=== PATIENT | male | born 1980 | race Caucasian/White ===

== ENCOUNTER 2024-10-06 12:16 | Emergency (ER) | payer OTHER ==
[~2024-10-06] VITALS: Ht 177.8 cm; Wt 160.0 kg
[2024-10-06 12:38] LABS: BASOPHILS 0.5 % (0-2); HEMATOCRIT 39.9 % (35.0-50.0); HEMOGLOBIN 13.5 g/dL (12.0-18.0); LYMPHOCYTES 22.1 % (24-44); MCH 29.3 (27-36); MCHC 33.9 g/dl (30-36); MCV 86.3 fl (81-99); MONOCYTES 7.6 % (0-12); NEUTROPHILS 67.8 % (39-80); PLATELET COUNT 198 K/uL (140-440); RBC 4.62 M/ul (4.3-5.7); RDW 14.3 (10.5-15.0)
[2024-10-06 12:54] LABS: INR 0.99 (0.80-1.30); PROTIME 12.6 Sec (11.2-14.2)
[2024-10-06 12:57] LABS: PARTIAL THROMBOPLASTIN TIME 29.9 Sec (22.9-41.3)
[2024-10-06 13:06] LABS: ACETAMINOPHEN 0 ug/mL (10-30); ALBUMIN 3.7 g/dL (3.4-5.0); ALBUMIN/GLOBULIN RATIO 1.06 (1.1-2.4); ALCOHOL, MEDICAL <3 ng/dL (<3); ALKALINE PHOSPHATASE 51 U/L (46-116); ALT (SGPT) 29 U/L (14-59); ANION GAP 8.9 (7-21); AST (SGOT) 17 U/L (15-37); BILIRUBIN, TOTAL 0.4 ng/dL (0.2-1.0); BUN/CREATININE RATIO 10.89 (6.0-28.6); CALCIUM 8.5 mg/dL (8.5-10.1); CARBON DIOXIDE 31 mmol/L (21-32); CHLORIDE 107 mmol/L (98-107); CREATININE, SERUM 1.01 mg/dL (0.70-1.30); GLOMERULAR FILTRATION RATE,EST 94 mL/min (>60); MAGNESIUM 2.1 mg/dL (1.8-2.4); POTASSIUM 3.9 mmol/L (3.5-5.1); PROTEIN, TOTAL 7.2 g/dL (6.4-8.2); SALICYLATE 0.9 mg/dL (2.8-20.0); UREA NITROGEN 11 mg/dL (7-18)
--- OUTSIDE RECORDS SUMMARY | 2024-10-06 14:03 | XMS ---
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 E.Arthur. VISIT COUNT (12 MO.) [address] [facility] 1 [facility] 1 [facility] 1 [facility]. 1 [facility] H. TOTAL 14 NOTE: Visits indicate total known visits. ED/UCC VISIT TRACKING (12 MO.) 10/06/2024 12:17 [facility] [place] TYPE: Emergency COMPLAINT: - CHEST PRESSURE 09/27/2024 13:[facility] [place] [facility] DIAGNOSES: - Hallucinations, unspecified - Other stimulant abuse, uncomplicated - Suicidal ideations - SI 09/26/2024 11:09 [facility] [place] TYPE: Emergency DIAGNOSES: - Homelessness unspecified - Hallucinations 09/26/2024 04:13 [facility] [place] TYPE: [facility] COMPLAINT: - Hallucinations DIAGNOSES: - Hallucinations 09/08/2024 22:40 [facility] [place] TYPE: Emergency DIAGNOSES: - Cystitis, unspecified without hematuria - Suicidal ideations - si 08/28/2024 21:40 [employer] [employer] [place] TYPE: Emergency DIAGNOSES: - Other stimulant abuse, uncomplicated - Suicidal ideations - SI 07/31/2024 18:01 [facility] [place] TYPE: Emergency DIAGNOSES: - Schizoaffective disorder, unspecified - Urinary tract infection, site not specified - SI 07/27/2024 22:43 [facility] [place] TYPE: Emergency DIAGNOSES: - Hallucinations, unspecified - Other stimulant abuse, uncomplicated - Urinary tract infection, site not specified - Hallucinations 06/28/2024 00:15 [facility] [place] TYPE: Emergency DIAGNOSES: - Paranoid schizophrenia - Urinary tract infection, site not specified - ams 06/10/2024 19:01 [facility] [place] TYPE: Emergency DIAGNOSES: - Suicidal ideations - SI - Suicidal 05/23/2024 13:24 [facility] TYPE: Emergency COMPLAINT: - Suicidal DIAGNOSES: - Suicidal ideations - Suicidal 05/21/2024 21:47 [facility] [place] TYPE: Emergency COMPLAINT: - Chest pain DIAGNOSES: - Chest pain, unspecified - Depression, unspecified - Other stimulant abuse, uncomplicated - Suicidal ideations - Chest pain 05/09/2024 20:02 [facility] [place] TYPE: Emergency COMPLAINT: - POC DIAGNOSES: - Delusional disorders - Suicidal ideations - POC - POV - Suicidal 03/28/2024 21:20 [facility] TYPE: Emergency DIAGNOSES: - Depression, unspecified - Depression, unspecified - Other stimulant use, unspecified, uncomplicated - Mental health - Suicidal Thoughts INPATIENT VISIT TRACKING (12 MO.) 09/28/2024 20:[address] [facility] 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 [place] TYPE: Psychiatric Services DIAGNOSES: 0. Paranoid schizophrenia 0. Unspecified psychosis not due to a substance or known physiological condition 1. Paranoid schizophrenia 2. Essential (primary) hypertension 2. Nicotine dependence, other tobacco product, uncomplicated 2. Other stimulant dependence with withdrawal 2. Patient's intentional underdosing of medication regimen for other reason 2. Patient's other noncompliance with medication regimen for other reason 2. Sheltered homelessness 2. Suicidal ideations 2. Underdosing of mjbmhfdrlyr-gbiwlcnqgw-dfslgt inhibitors, initial encounter 2. Underdosing of other antipsychotics and neuroleptics, initial encounter 2. Underdosing of selective serotonin reuptake inhibitors, initial encounter 2. Urinary tract infection, site not specified 06/12/2024 04:06 [facility] [place] TYPE: Psychiatric Services DIAGNOSES: 0. Major depressive disorder, recurrent, unspecified 0. Unspecified psychosis not due to a substance or known physiological condition 1. Unspecified psychosis not due to a substance or known physiological condition 2. Essential (primary) hypertension 2. Gastro-esophageal reflux disease without esophagitis 2. Homelessness unspecified 2. Patient's other noncompliance with medication regimen for other reason 2. Suicidal ideations 2. Underdosing of other antipsychotics and neuroleptics, initial encounter 2. Underdosing of selective serotonin reuptake inhibitors, initial encounter 05/23/2024 18:27 [facility] [place] TYPE: Psychiatric Services DIAGNOSES: 0. Major depressive disorder, recurrent severe without psychotic features 0. Major depressive disorder, recurrent, severe with psychotic symptoms 1. Major depressive disorder, recurrent, severe with psychotic symptoms 2. Body mass index [BMI] 45.0-49.9, adult 2. Body mass index [BMI] 45.0-49.9, adult 2. Body mass index [BMI] 45.0-49.9, adult 2. Body mass index [BMI] 45.0-49.9, adult 2. Essential (primary) hypertension 2. Gastro-esophageal reflux disease without esophagitis 2. Hypokalemia 2. Nicotine dependence, cigarettes, uncomplicated 2. Nicotine dependence, other tobacco product, uncomplicated 2. Obesity, unspecified 2. Other specified anxiety disorders 2. Patient's unintentional underdosing of medication regimen for other reason 2. Personal history of suicidal behavior 2. Sheltered homelessness 2. Suicidal ideations 05/10/2024 15:24 [facility] TYPE: Psychiatric Services COMPLAINT: - POC DIAGNOSES: - Delusional disorders - Suicidal ideations [email or web address]
[2024-10-06 14:14] LABS: AMPHETAMINES, URINE POSITIVE (NEGATIVE); BARBITURATES, URINE NEGATIVE (NEGATIVE); BENZODIAZEPINE, URINE NEGATIVE (NEGATIVE); BUPRENORPHINE, URINE NEGATIVE (NEGATIVE); CANNABINOID, URINE POSITIVE (NEGATIVE); COCAINE, URINE NEGATIVE (NEGATIVE); ECSTASY, URINE NEGATIVE (NEGATIVE); FENTANYL, URINE NEGATIVE (NEGATIVE); METHADONE, URINE NEGATIVE (NEGATIVE); OPIATES, URINE NEGATIVE (NEGATIVE); OXYCODONE, URINE NEGATIVE (NEGATIVE); PHENCYCLIDINE, URINE NEGATIVE (NEGATIVE)
[2024-10-06 14:58] VITALS: BP 187/97
--- NOTE | 2024-10-06 22:03 | EKG ---
[facility] [address] [place] [address] Signed Normal sinus rhythm Left axis deviation Inferior infarct , age undetermined Abnormal ECG No previous ECGs available Confirmed by Nate Lay MD () on 10/06/2024 10:03:40 PM Electronically Signed By: NATE LAY MD 10/06/242202 PATIENT NAME: NELY KEARNS Electrocardiogram DATE OF : 80 PHYSICIAN: NATE LAY MD REPORT #: [id number] REPORT IS CONFIDENTIAL AND NOT TO BE RELEASED WITHOUT AUTHORIZATION
== END 2024-10-06 14:34 | disposition left against medical advice (07) ==
LOC: ED 12:16
PROVIDERS: Emergency Medicine
DX: F41.9 Anxiety disorder, unspecified (principal); R79.89 Other specified abnormal findings of blood chemistry; R07.89 Other chest pain; Z53.29 Procedure and treatment not carried out because of patient's decision for other reasons
CPT/HCPCS: 36415; 71045; 80053; 80307; 83735; 83880; 84484; 85025; 85610; 85730; 93005; 93010; 99285-25; G0480